=== PATIENT | male | born 1970 | race Caucasian/White ===

== ENCOUNTER 2021-12-17 12:55 | Emergency (ER) | payer MEDICAID ==
[~2021-12-17] VITALS: Ht 175.3 cm; Wt 122.7 kg
[2021-12-17 12:59] VITALS: BP 152/108
== END 2021-12-17 15:00 | disposition left against medical advice (07) ==
LOC: ER 12:56
DX: M79.604 Pain in right leg (principal); Z53.21 Procedure and treatment not carried out due to patient leaving prior to being seen by health care provider

== ENCOUNTER 2025-09-19 17:51 | Emergency (ER) | payer SELFPAY ==
[~2025-09-19] VITALS: Ht 175.3 cm; Wt 104.5 kg
[2025-09-19 18:10] VITALS: TEMP 98.4
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
--- NOTE | 2025-09-19 19:26 | ELECTROCARDIOGRAPH REPORT ---
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 CORONA Kate Measurements Intervals [place] Rate: 68 P: 45 MN: 156 QRS: 28 QRSD: 101 T: 58 QT: 402 QTc: 428 Interpretive Statements Sinus rhythm Borderline low voltage, extremity leads Electronically Signed On 09-21-2025 16:54:[address] CORONA Kate Please click the below link to view image of tracing.
[2025-09-19 19:37] LABS: MEAN PLATELET VOLUME 7.7 FL (7.4-10.4); RED CELL DISTRIBUTION WIDTH 13.3 % (11.5-14.5)
[2025-09-19] MEDS ORDERED: ACET-2971 PO (19:41)
[2025-09-19] MEDS ORDERED: METH-798 PO (19:41)
[2025-09-19] MEDS ORDERED: IBUP-1986 PO (19:41)
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
[2025-09-19 19:58] LABS: CREATINE KINASE MB 2.0 ng/ml (0.3-3.6); CREATININE 0.92 MG/DL (0.60-1.10); TOTAL CARBON DIOXIDE 31.9 MMOL/L (24-32); eCRCL 90 ML/MIN; eGFR 85 ML/MIN
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
[2025-09-19 21:14] VITALS: BP 123/86; PULSE 72; RESP 16; O2SAT 96
== END 2025-09-19 21:27 | disposition left against medical advice (07) ==
LOC: ER 17:51
DX: S13.4XXA Sprain of ligaments of cervical spine, initial encounter (principal); M54.50 Low back pain, unspecified; Z79.899 Other long term (current) drug therapy; V49.9XXA Car occupant (driver) (passenger) injured in unspecified traffic accident, initial encounter; Y93.89 Activity, other specified; Y92.89 Other specified places as the place of occurrence of the external cause; Y99.8 Other external cause status
CPT/HCPCS: 36415; 72125; 72128; 72131; 80048; 82553; 84484; 85025; 93005; 99284